=== PATIENT | female | born 1955 | race Caucasian/White ===

== ENCOUNTER 2017-02-27 19:58 | Emergency (ER) | payer BC, MEDICARE ==
[~2017-02-27] VITALS: Ht 157.5 cm; Wt 64.9 kg
[~2017-02-27 19:58] MED LIST: FIORICET 325 MG1 TAB PO; FLEXERIL10 MG PO; IBU-8800 MG PO; LISINOPRIL 20MG20 MG PO; NAPROSYN 500MG500 MG PO
--- NOTE | 2017-02-27 20:24 | Urgent Treatment Center Report ---
History of Present Issue Date/Time Seen by Provider 02/27/17 2030 Visit Reason Pt arrived:Walked Presenting Problem:FELL 4 WEEKS AGO DOWN SOME STEPS AND TWISTED HER LEFT ANKLE Location if Accident: Onset of symptoms date/time:/ or onset unknown for:MEDICAL HX UNKNOWN Have you (or family members/close friends) recently traveled outside the [place]? N If Yes, where/when: Have you had exposure to infectious disease within the past month? TB? Other? Specify: Patient states that about 4 weeks ago she was walking down the steps and fell falling down about 13 steps and twisted her left ankle State that ever since she has been having pain and swelling on and off if she is on it for a long period of time. States that today she noticed that the swelling was back so she decided to come in and get her ankle checked ALLERGIES Coded Allergies: tetanus and diphtheria toxoids (Mild, 02/27/17) Home Medications Active Scripts Zanqkdhmlxxhl-Bjsg-Hraavimmrm (Fioricet ([id number])) 1-2 TAB PO Q4-6H PRN 5 Days Prov: 04/21/11 Reported Medications LISINOPRIL (Lisinopril) 20 MG PO DAILY NAPROXEN (NAPROSYN 500MG TAB) 500 MG PO BIDP History Medical History General Angina: No [place]: No Hypertension? No Hyperlipidemia? No CHF? No COPD? No Asthma? No Hernia? No CVA? No Seizures? No Diabetes? No UTI? No Stones? No GB Disease: Yes Hepatitis? No Cataracts? No Glaucoma? No MRSA? No TB? No Immunization HX DT/Tetanus UNKNOWN Surgical Hx Previous Surgery?Y LAP SAHRA Hysterect Back Surgery R EYE BTL X2 NECK ROTATOR CUFF REPAIR Family History Family HX Diabetes No CAD No Hypertension No Hyperlipidemia No Cancer No TB Yes Social History Smoking Hx Smoker: Current Every Day Smoker Tobacco: Yes Type Cigarettes Alcohol Alcohol: No Review of Systems All Other Systems Reviewed and Negative Comment Pain and swelling in left ankle after falling down steps about 4 weeks ago, she did not go to the doctor then but has continued to have eppisodes of swelling and pain ever since fall, Physical Exam Vital Signs Vital Signs Date Time Temp Pulse Resp B/P Pulse O2 O2 Flow FiO2 Ox Delivery Rate 02/27 2015 98.2 73 14 134/68 98 General Appearance normal appearance, WD/WN, no apparent distress Respiratory Status Yes: trachea midline, chest symmetrical, non tender chest. No: respiratory distress. 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 No Results/Orders Orders Procedure Date/time Status UTC STABILIZE JOINT/AREA 02/27 2103 Active ANKLE-LT-3 VIEWS 02/27 2017 Active XRAY/CT/US XRAY/CT/US XRAY ankle XR interpretation by reviewed by me Xray Results possible avulsion fracture of the distal tibula Departure Departure Time of Disposition 2100 Disposition DC Home or Self Care(routine) Clinical Impression Primary Impression: Avulsion fracture of ankle Qualifiers: Encounter type: initial encounter Fracture type: closed Laterality: left Qualified Code: S82.892A - Other fracture of left lower leg, initial encounter for closed fracture Condition STABLE Referrals Dr Yang Patient Instructions DI for Ankle Fracture, How To Perform RICE (Rest, Ice, Compress, Elevate), How to Use Crutches Additional Instructions *RICE, Rest the extremity, Ice 15-20 minutes 3-4 times daily, Compress- wear the adán wrap as discussed as much as possible to help reduce swelling and pain, Elevate the extremity when at rest *Adán wrap is for support and help control swelling, use it except in the shower. Be sure that is not to tight but not to loose either *Elevate when resting *Ibuprofen 600-800mg every 6-8 hours as needed for pain an inflammation. If need something more can take Tylenol in between doses of Ibuprofen to help Immediately follow up for new or worsening of symptoms, or no noticeable improvement over the next 3-5 days Discharge Counseling Counseled pt/family regarding diagnosis, test results, home care, follow up needs at 2100
[2017-02-27 21:05] VITALS: BP 134/68
--- NOTE | 2017-02-28 05:19 | RADIOLOGY REPORT PS360 ---
ANKLE-LT-3 VIEWS HISTORY: Left ankle pain FELL 4 WEEKS AGO PAIN IN THE ANKLE ORDERING PHYSICIAN: JEFFERY MCGOVERN APRN PATIENT AGE: 62 years COMPARISON: None FINDINGS: No displaced fracture or dislocation. No lytic or blastic change. There is normal mineralization.. The joint spaces are well-preserved. No significant degenerative/arthritic changes. No erosive changes evident. There is some mild soft tissue swelling overlying the lateral malleolus region. There is faint cortical irregularity at the tip of the lateral malleolus which could be due to a nondisplaced avulsion injury. IMPRESSION: Cortical irregularity at the tip of the lateral malleolus which could be related to nondisplaced avulsion fracture
[2017-03-07] MEDS ORDERED: MINIVELLE0.025 MG/2 (12:58)
[2017-03-07] MEDS ORDERED: LEXAPRO 10 MG T10 MG (12:58)
== END 2017-02-27 21:07 | disposition home or self-care (01) ==
LOC: UTC 19:58
PROC: 2W3RX1Z Immobilization of Left Lower Leg using Splint (ICD-10-PCS; principal; 2017-02-27)
DX: S82.892A Other fracture of left lower leg, initial encounter for closed fracture (principal); Z72.0 Tobacco use; W10.9XXA Fall (on) (from) unspecified stairs and steps, initial encounter

== ENCOUNTER → 2017-03-27 | Outpatient (CLI) | payer BC, MEDICARE ==
[~2017-03-27] MED LIST changes: +FOSAMAX70 M1; +GLIPIZIDE ER 5MG5 MG; +LEXAPRO 10 MG T10 MG; +LIPITOR20 M1; +MINIVELLE0.025 MG/2
[2017-03-27 19:44] LABS: HEMOGLOBIN 13.4 g/dL (12.2-16.2); LYMPH # 2.7 K/mm3 (0.7-4.5); LYMPH % 28.1 % (10-50.0)
[2017-03-27 20:39] LABS: BUN 14 mg/dL (7-18)
[2017-03-27 20:40] LABS: GFR (ESTIMATED) 73 ML/MIN (59-)
[2017-03-29 09:37] LABS: Folate (Folic Acid) 18.9 ng/mL (>3.0); Vitamin D, 25-Hydroxy 33.1 ng/mL (30.0-100.0)
== END ==
LOC: LAB 19:06
PROVIDERS: Physician Assistant
DX: I10 Essential (primary) hypertension (principal); E11.9 Type 2 diabetes mellitus without complications